=== PATIENT | female | born 1985 | race Asian ===

== ENCOUNTER 2024-12-23 06:23 | Day surgery (SDC) | payer BC, SELFPAY ==
[2024-12-23] VITALS (13 sets, daily range): BP systolic 123–187; BP diastolic 94–113; BMI 26.4
[2024-12-23] MEDS: NORMOSOL-R/PLASMALYTE-A 1000 IV (10:29)
[2024-12-23] MEDS: APRESOLINE 5 MG IV (13:30)
--- NOTE | 2024-12-23 13:36 | PTCARENOTE ---
Pt's BP high on arrival into [facility] today (180/113). Re-check done around 1315 and was 168/120. Pt reports feeling anxious and also did not take her BP med this morning. Dr Amezcua notified. 5mg hydralazine IV ordered and given. Will continue to
monitor.
== END 2024-12-23 16:37 | disposition home or self-care (01) ==
LOC: SDS 06:23
PROVIDERS: ATTENDING PHYSICIAN Specialist; PRIMARYCARE PHYSICIAN Family Medicine
DX: N20.0 Calculus of kidney (principal)
CPT/HCPCS: 52356; 74018; 76000; C1894; C2617